=== PATIENT | male | born 1970 | race Caucasian/White ===

== ENCOUNTER 2024-04-19 07:39 | Inpatient (IN) | payer MEDICAID ==
[2024-04-19] VITALS (25 sets, daily range): BP systolic 85–160; BP diastolic 55–95; PULSE 57–73; RESP 10–59; TEMP 97.2–98.4; O2SAT 88–100
[~2024-04-19] VITALS: Ht 185.4 cm; Wt 115.9 kg
[~2024-04-19 07:39] MED LIST: LITH300T5 PO; LURA40TA2 PO; MIRT-92 PO; QUET25TA PO; ROPI2TAB29 PO; SERT50TA PO; TRAZ150T78 PO
[2024-04-19] MEDS: famotidine 20mg tablet PO ONE (08:36)
[2024-04-19] MEDS: ringers solution, lacted 1,000 ML IV SCH ×2 (08:37→10:40)
[2024-04-19] MEDS: clindamycin-Cleocin 900mg/D5W 50 ML IV ONE (08:37)
[2024-04-19 09:06] LABS: BASOPHILS % (AUTO) 0.7 % (0-1); EOSINOPHILS # (AUTO) 0.3 X10'3 (0-0.9); EOSINOPHILS % (AUTO) 4.5 % (0-6); LYMPHOCYTES # (AUTO) 1.7 X10'3 (1.1-4.8); LYMPHOCYTES % (AUTO) 23.3 % (21-51); MEAN CORPUSCULAR HGB CONC 34.5 g/dL (33.0-36.5); MEAN CORPUSCULAR VOLUME 98.6 FL (78-98); MEAN PLATELET VOLUME 7.5 FL (7.4-10.4); MONOCYTES # (AUTO) 0.3 X10'3 (0-0.9); MONOCYTES % (AUTO) 3.6 % (2-12); NEUTROPHILS # (AUTO) 5.1 X10'3 (1.8-7.7); NEUTROPHILS % (AUTO) 67.9 % (42-75); PRE OP HEMATOCRIT 40.2 % (42.0-52.0); PRE OP HEMOGLOBIN 13.9 g/dL (14.0-17.9); PRE OP PLATELET COUNT 118 X10'3 (140-440); PRE OP WHITE BLOOD COUNT 7.5 10'3 (4.8-10.8); RED BLOOD COUNT 4.08 X10'6 (4.70-6.10); RED CELL DISTRIBUTION WIDTH 14.3 % (11.5-14.5)
[2024-04-19 09:21] LABS: ALBUMIN 3.3 G/DL (3.4-5.0); ALBUMIN/GLOBULIN RATIO 0.7 (1.1-1.5); ALKALINE PHOSPHATASE 102 IU/L (46-116); BLOOD UREA NITROGEN 8 MG/DL (7-18); BUN/CREATININE RATIO 8.8 (10.0-20.0); CALCIUM 8.6 MG/DL (8.5-10.1); CHLORIDE 107 MMOL/L (99-107); CREATININE 0.91 MG/DL (0.60-1.10); PRE OP ALT 33 U/L (30-65); PRE OP ANION GAP 9 (8-16); PRE OP AST 28 U/L (10-37); PRE OP BILIRUB, TOTAL 0.8 MG/DL (0.0-1.0); PRE OP GLUCOSE 110 MG/DL (70-104); PRE OP POTASSIUM 3.4 MMOL/L (3.4-5.1); PRE OP SODIUM 140 MMOL/L (135-145); TOTAL CARBON DIOXIDE 24.5 MMOL/L (24-32); TOTAL PROTEIN 7.8 G/DL (6.4-8.2); eCRCL 105 ML/MIN; eGFR 87 ML/MIN
[2024-04-19 09:42] LABS: PROTHROMBIN TIME 10.8 SECONDS (9.0-12.0)
[2024-04-19 09:48] LABS: PRE OP PARTIAL THROMB. TIME 27 SECONDS (22-32)
[2024-04-19] MEDS ORDERED: enalaprilat 1.25mg/ml 2ml vial IV PRN (10:40)
[2024-04-19] MEDS ORDERED: ondansetron/PF 4mg/2ml inj IV PRN (10:40)
[2024-04-19] MEDS ORDERED: morphine 2 MG/ML inj. syringe IV PRN (10:40)
[2024-04-19] MEDS ORDERED: morphine 4 MG/ML inj SYRINge IV PRN (10:40)
[2024-04-19] MEDS ORDERED: meperidine/PF 25mg/ml syringe IV PRN (10:40)
[2024-04-19] MEDS ORDERED: hydrALAZINE 20mg/ml inj. IV PRN (10:40)
[2024-04-19] MEDS ORDERED: sevoflurane 250ml liquid IH ONE (12:21)
[2024-04-19] MEDS ORDERED: fentaNYL/PF 50MCG/1 ML 2ML syringe ONE (12:33)
[2024-04-19] MEDS ORDERED: midazolam 1 mg/ML 2ml injection ONE (12:34)
[2024-04-19] MEDS ORDERED: ceFAZolin 1000mg inj ONE ×2 (12:42)
[2024-04-19] MEDS ORDERED: propofol inj 20 ML IV ONE (12:42)
[2024-04-19] MEDS ORDERED: dexamethasone sod phosphate 4mg/ml inj. ONE (12:53)
[2024-04-19] MEDS ORDERED: ondansetron/PF 4mg/2ml inj ONE (12:53)
[2024-04-19] MEDS ORDERED: LIDOcaine 2% (20mg/ml) 5ml vial ONE (12:57)
[2024-04-19] MEDS ORDERED: naloxone 0.4 mg/ml inj IV PRN (13:55)
[2024-04-19] MEDS ORDERED: clindamycin 600mg/D5W 50ml 50 ML IV SCH (14:00)
[2024-04-19] MEDS: meperidine/PF 25mg/ml syringe IV PRN (14:39)
[2024-04-19] MEDS: lurasidone 20mg tablet PO SCH (21:30)
[2024-04-19] MEDS: lithium carbonate 150mg capsule PO SCH (21:31)
[2024-04-19] MEDS: ROPINIRole 1mg tablet PO SCH (21:31)
[2024-04-19] MEDS: QUEtiapine 25mg tablet PO SCH (21:32)
[2024-04-19] MEDS: mirtazapine 15mg tablet PO SCH (21:32)
[2024-04-19] MEDS: traZODone 50mg tablet PO SCH (21:33)
[2024-04-19] MEDS: HYDROcodone/acetaminophen 10/325mg tab PO PRN (21:34)
[2024-04-19] MEDS: clindamycin 600mg/D5W 50ml 50 ML IV SCH (21:35)
[2024-04-19] MEDS: Potassium Cl inj 20 MEQ in ringers solution, lacted 1,000 ML IV SCH (22:34)
[2024-04-20] VITALS: BP 123/67; PULSE 64; RESP 14; TEMP 97.3; O2SAT 97
[2024-04-20 01:00] VITALS: O2SAT 97
[2024-04-20 03:15] VITALS: BP 139/81; PULSE 68; RESP 14; TEMP 97.7; O2SAT 97
[2024-04-20 06:00] VITALS: BP 140/81; PULSE 60; RESP 14; TEMP 97.6; O2SAT 97
[2024-04-20 06:30] VITALS: O2SAT 95
[2024-04-20] MEDS: sertraline 50mg tablet PO SCH (07:42)
[2024-04-20 14:22] VITALS: RESP 16
[2024-04-20] MEDS: ondansetron/PF 4mg/2ml inj IV PRN (15:48)
== END 2024-04-20 16:00 | disposition home or self-care (01) | DRG 171 ==
LOC: PAS IN 07:39 → PCU 3S 17:15
PROVIDERS: ADMIT Surgery; ATTEND Surgery
PROC: 02H63JZ Insertion of Pacemaker Lead into Right Atrium, Percutaneous Approach (ICD-10-PCS; 2024-04-19)
PROC: 02HK3JZ Insertion of Pacemaker Lead into Right Ventricle, Percutaneous Approach (ICD-10-PCS; 2024-04-19)
PROC: 0JH606Z Insertion of Pacemaker, Dual Chamber into Chest Subcutaneous Tissue and Fascia, Open Approach (ICD-10-PCS; principal; 2024-04-19 12:21)
DX: I49.5 Sick sinus syndrome (principal); F32.A Depression, unspecified; F43.10 Post-traumatic stress disorder, unspecified; I10 Essential (primary) hypertension; Z88.0 Allergy status to penicillin
CPT/HCPCS: 36415; 71045; 71048; 80053; 82948; 85025; 85610; 85730; 87081; A4215; A4565; A4615; A4618; A6258; A7000; C1785; G0378; J0690; J1100; J2003; J2175; J2250; J2405; J2704; J3010; J3480; J3490; J7030; J7050; J7120